=== PATIENT | male | born 1990 | race Caucasian/White ===

== ENCOUNTER 2023-06-18 08:00 | Outpatient (CLI) | payer OTHER | END 2023-06-18 23:59 | disposition home or self-care (01) | LOC: LAB.N 08:00 | PROVIDERS: ATTEND Physician Assistant Medical | DX: J02.9 Acute pharyngitis, unspecified (principal) | CPT/HCPCS: 87070 ==

== ENCOUNTER 2023-07-06 11:25 | Emergency (ER) | payer OTHER ==
--- NOTE | 2023-07-06 12:18 | XRAY Report ---
PROCEDURE: Finger(s) LT INDICATIONS: Trauma TECHNIQUE: AP hand, 2 views of the first finger(s) acquired. COMPARISON: None. FINDINGS: Bones: No fractures or dislocations. No suspicious bony lesions. Soft tissues: No suspicious soft tissue calcifications or masses. IMPRESSION: No acute bony abnormality. Reviewed by: Jabari Mendes MD on 07/06/2023 11:17 AM ИРИНА Approved by: Jabari Mendes MD on 07/06/2023 11:17 AM ИРИНА Station ID: [id number]
--- NOTE | 2023-07-06 13:04 | ED Physician Documentation ---
PD HPI UPPER EXT INJURY - Stated complaint Stated Complaint: LT THUMB PX - Chief complaint Chief Complaint: Trauma Ext - History obtained from History obtained from: Patient - History of Present Illness Location: Left, Finger Type of injury: Blunt / blow (a gate opened onto thumb tip, causing forceful jamming at MCP and proximal pahlanx. Pain and swelling at base of thumb.) Timing - onset: Yesterday Timing - details: Abrupt onset, Still present Worsened by: Moving, Palpating Review of Systems Skin: denies: Abrasion (s), Laceration (s) PD PAST MEDICAL HISTORY - Past Medical History Past Medical History: No Respiratory: Other Other Past Medical History: penumothorax - Past Surgical History General: Appendectomy - Present Medications Home Medications: Ambulatory Orders Medication Instructions Recorded Confirmed No Known Home Medications 07/06/23 07/06/23 - Allergies Allergies/Adverse Reactions: Allergies Allergy/AdvReac Type Severity Reaction Status Date / Time No Known Drug Allergies Allergy Verified 07/06/23 11:39 - Social History Does the pt smoke?: No Smoking Status: Never smoker Does the pt drink ETOH?: Yes Does the pt have substance abuse?: No - Immunizations Immunizations are current?: Yes PD ED PE NORMAL - Vitals Vital signs reviewed: Yes - General General: Alert and oriented X 3, Well developed/nourished - Derm Derm: Normal color, Warm and dry - Extremities Extremities: Other (left thumb with tenderness and some joint swelling at MCP. No gross laxity with base of thumb stress testing. Able to flex and extend, though limited due to hurting. ) - Neuro Neuro: No motor deficit, No sensory deficit Results - Vitals Vitals: Oxygen O2 Source Room air - Rads (name of study) left thumb xray Relevant Findings:: Prelim report reviewed, EMP independent interpretation of test (no fractures nor dislocations. ) PD Medical Decision Making - ED course Complexity details: reviewed results, considered differential (thumb jammed with impact at tip, causing MCP pain and swelling. Not obvious laxity with stress testing of joint. Limited ROM due to pain/swelling, but able to flex/extend. Given velcro thumb spica splint for immobilzation for healing. Limited duty with hand. ), d/w patient Departure - Departure Disposition: 01 Home, Self Care Clinical Impression: Left thumb sprain Condition: Stable Record reviewed to determine appropriate education?: Yes Instructions: ED Sprain Finger Follow-Up: BHARGAV Acevedo [Provider Group] Comments: Your x-ray does not show any fractures. Obviously you still have swelling and pain in the area and presume some injury to the ligaments at the base of the thumb. You can use the thumb splint to help with reduced motion and protect the area. I would also suggest some anti-inflammatory such as ibuprofen 600 mg 3 times daily for the next few days for pain and inflammation. Elevate and ice and rest the thumb often today and tomorrow to help with swelling. Limited use for li tony 3 to 5 days or so as it is improving. Sometimes this can take even a week or 2 to improve. On exam I do not get a sense of torn ligaments so I presume splinting and time will be the answer. Forms: PCP List, Activity restrictions Discharge Date/Time: 07/06/23 13:45
[2023-07-06] MEDS: IBUPROFEN 600 MG TABLET PO STA (13:35)
[2023-07-06 13:52] VITALS: BP 114/75; O2SAT 99
== END 2023-07-06 13:45 | disposition home or self-care (01) ==
LOC: ED 11:25
DX: S63.602A Unspecified sprain of left thumb, initial encounter (principal); X58.XXXA Exposure to other specified factors, initial encounter
CPT/HCPCS: 73140; 99283; A9270